=== PATIENT | female | born 1985 | race African-American/Black ===

== ENCOUNTER 2019-06-24 16:00 | Emergency (ER) | payer MEDICAID | END 2019-06-24 16:44 | disposition left against medical advice (07) | LOC: ER 16:00 | DX: Z53.21 Procedure and treatment not carried out due to patient leaving prior to being seen by health care provider (principal) ==

== ENCOUNTER 2019-08-11 20:02 | Emergency (ER) | payer MEDICAID ==
[~2019-08-11] VITALS: Ht 175.3 cm; Wt 95.0 kg
[2019-08-11 22:26] LABS: CLARITY URINE CLOUDY (CLEAR); COLOR URINE ORANGE (YELLOW); KETONES URINE 4+ (NEGATIVE); LEUKOCYTE ESTERASE URINE 1+ (NEGATIVE); NITRITE URINE POSITIVE (NEGATIVE); OCCULT BLOOD URINE NEGATIVE (NEGATIVE); PROTEIN URINE 2+ (NEGATIVE); SPECIFIC GRAVITY URINE 1.041 (1.005-1.030)
[2019-08-12 02:39] VITALS: BP 122/71
[2019-08-12] MEDS ORDERED: ACETAMINOPHEN 325MG TABLET PO PRN (06:30)
[2019-08-12] MEDS ORDERED: ONDANSETRON 4MG ODT PO ONE (06:30)
[2019-08-12 08:16] LABS: BASOPHILS % 0.3 % (0.0-2.0); EOSINOPHILS % 0.3 % (0.0-5.0); HEMATOCRIT. 34.4 % (36.0-48.0); HEMOGLOBIN. 11.7 g/dL (12.0-16.0); LYMPHOCYTES % 24.9 % (20.0-50.0); MEAN CORPUSCULAR HEMOGLOBIN 32.6 pg (28.0-32.0); MEAN CORPUSCULAR VOLUME 95.4 fL (81.0-99.0); MEAN PLATELET VOLUME 8.6 fl (7.4-10.4); MONOCYTES % 11.3 % (2.0-8.0); NEUTROPHILS % 63.2 % (40.0-76.0); PLATELET 272 x1000/uL (130-400); RED CELL DISTRIBUTION WIDTH 12.8 % (11.6-14.6)
[2019-08-12 08:20] LABS: CHLORIDE 105 mEq/L (98-107)
[2019-08-12 08:45] LABS: B-HCG QUANTITATIVE 19752 mIU/mL (<3)
== END 2019-08-12 08:51 | disposition home or self-care (01) ==
LOC: ER 20:02
DX: O20.0 Threatened abortion (principal); O23.42 Unspecified infection of urinary tract in pregnancy, second trimester; O26.892 Other specified pregnancy related conditions, second trimester; J45.909 Unspecified asthma, uncomplicated; Z90.710 Acquired absence of both cervix and uterus; Z3A.19 19 weeks gestation of pregnancy
CPT/HCPCS: 36415; 76805; 80053; 81003; 84702; 85025; 86850; 86900; 86901; 99284; Q0162

== ENCOUNTER 2024-09-06 00:42 | Emergency (ER) | payer BC, MEDICAID ==
[~2024-09-06] VITALS: Ht 175.3 cm; Wt 97.0 kg
[2024-09-06 00:44] VITALS: O2SAT 98
[2024-09-06 01:01] VITALS: BP 143/91; PULSE 98; RESP 16; TEMP 36.9; O2SAT 100
[2024-09-06] MEDS ORDERED: BACITRACIN ZINC OINT UDPKT TOP ONE (01:30)
[2024-09-06] MEDS ORDERED: LIDOCAINE HCL/PF 1% 10 MG/ML 5ML VIAL INFIL ONE (01:30)
[2024-09-06] MEDS: LIDOCAINE HCL/PF 1% 10 MG/ML 5ML VIAL INFIL NR (03:15)
[2024-09-06] MEDS: BACITRACIN ZINC OINT UDPKT TOP NR (03:15)
== END 2024-09-06 04:31 | disposition home or self-care (01) ==
LOC: ER 00:42
DX: S61.210A Laceration without foreign body of right index finger without damage to nail, initial encounter (principal); S61.212A Laceration without foreign body of right middle finger without damage to nail, initial encounter; S61.216A Laceration without foreign body of right little finger without damage to nail, initial encounter; W26.9XXA Contact with unspecified sharp object(s), initial encounter; Y93.89 Activity, other specified; Y92.89 Other specified places as the place of occurrence of the external cause; Y99.8 Other external cause status
CPT/HCPCS: 73130; 12002; 99284; J2003; Z7610